=== PATIENT | female | born 1980 | race African-American/Black ===

== ENCOUNTER 2018-01-09 21:43 | Emergency (ER) | payer OTHER ==
[~2018-01-09] VITALS: Ht 172.7 cm; Wt 88.2 kg
[2018-01-09 22:00] VITALS: Ht 172.7 cm; Wt 88.2 kg
[2018-01-09 23:55] VITALS: BP 126/68
== END 2018-01-09 23:55 | disposition home or self-care (01) ==
LOC: ED 21:43
DX: S89.91XA Unspecified injury of right lower leg, initial encounter (principal); X58.XXXA Exposure to other specified factors, initial encounter; Y93.89 Activity, other specified; Y92.89 Other specified places as the place of occurrence of the external cause; Y99.8 Other external cause status
CPT/HCPCS: J1885

== ENCOUNTER 2020-01-06 15:03 | Emergency (ER) | payer MEDICAID ==
[~2020-01-06] VITALS: Ht 172.7 cm; Wt 83.9 kg
[2020-01-06 15:16] VITALS: Ht 172.7 cm; Wt 83.9 kg
[2020-01-06 16:15] LABS: PLATELET COUNT 370 x10^3mcL (130-400); RED CELL DISTRIBUTION WIDTH 13.7 % (11.5-14.5)
[2020-01-06 16:23] LABS: CALCIUM 8.5 mg/dL (8.5-10.1); CARBON DIOXIDE 25.4 mmol/L (21-32); CHLORIDE SERUM 108 mmol/L (98-107); CREATININE SERUM 0.7 mg/dL (0.6-1.0); GFR1 > 60 mL/min; GLUCOSE SERUM 93 mg/dL (74-106); POTASSIUM SERUM 4.2 mmol/L (3.5-5.1); SODIUM SERUM 143 mmol/L (136-145)
[2020-01-06 16:34] LABS: ALBUMIN 3.8 g/dL (3.4-5.0); ALKALINE PHOSPHATASE 64 U/L (46-116); ALT/SGPT 34 U/L (14-59); AST/SGOT 22 U/L (15-37); BILIRUBIN TOTAL 0.2 mg/dL (0.20-1.00); LIPASE 58 IU/L (73-393); TOTAL PROTEIN, SERUM 7.6 g/dL (6.4-8.2)
[2020-01-06 19:04] VITALS: BP 128/88
== END 2020-01-06 19:16 | disposition home or self-care (01) ==
LOC: ED 15:03
PROVIDERS: Emergency Medicine
DX: G43.909 Migraine, unspecified, not intractable, without status migrainosus (principal); R11.2 Nausea with vomiting, unspecified; F10.129 Alcohol abuse with intoxication, unspecified; Y90.9 Presence of alcohol in blood, level not specified
CPT/HCPCS: J0780; J1200; J1885; J2270; J2405; J3030; J7030

== ENCOUNTER 2020-04-04 20:13 | Emergency (ER) | payer MEDICAID ==
[~2020-04-04] VITALS: Ht 175.3 cm; Wt 89.4 kg
[2020-04-04 20:24] VITALS: Ht 175.3 cm; Wt 89.4 kg
[2020-04-04 21:12] LABS: PLATELET COUNT 326 x10^3mcL (130-400)
[2020-04-04 21:15] LABS: RED CELL DISTRIBUTION WIDTH 14.7 % (11.5-14.5)
[2020-04-04 21:18] LABS: CALCIUM 8.4 mg/dL (8.5-10.1); CARBON DIOXIDE 28.5 mmol/L (21-32); CHLORIDE SERUM 103 mmol/L (98-107); CREATININE SERUM 0.9 mg/dL (0.6-1.0); GFR1 > 60 mL/min; GLUCOSE SERUM 108 mg/dL (74-106); POTASSIUM SERUM 3.7 mmol/L (3.5-5.1); SODIUM SERUM 139 mmol/L (136-145)
[2020-04-04 21:22] LABS: ALBUMIN 3.4 g/dL (3.4-5.0); ALKALINE PHOSPHATASE 59 U/L (46-116); ALT/SGPT 29 U/L (14-59); AST/SGOT 23 U/L (15-37); BILIRUBIN TOTAL 0.2 mg/dL (0.20-1.00); CHOLESTEROL 178 mg/dL (<200); HDL CHOLESTEROL 59 mg/dL (40-60); PHOSPHOROUS 2.6 mg/dL (2.5-4.9); TOTAL PROTEIN, SERUM 6.5 g/dL (6.4-8.2); URIC ACID 3.1 mg/dL (2.6-6.0)
[2020-04-04 22:02] VITALS: BP 139/99
== END 2020-04-04 22:02 | disposition home or self-care (01) ==
LOC: ED 20:13
PROVIDERS: Emergency Medicine
DX: R07.89 Other chest pain (principal); Z90.49 Acquired absence of other specified parts of digestive tract
CPT/HCPCS: 36415; J1885; Q0092

== ENCOUNTER 2020-05-27 00:26 | Emergency (ER) | payer MEDICAID ==
[~2020-05-27] VITALS: Ht 175.3 cm; Wt 89.8 kg
[2020-05-27 00:38] VITALS: Ht 175.3 cm; Wt 89.8 kg
[2020-05-27 01:35] LABS: UA SPECIFIC GRAVITY >=1.030 (1.005-1.035); microscopic required? YES; urine erythrocyte 2+ (NEGATIVE)
[2020-05-27 01:39] LABS: CALCIUM 8.3 mg/dL (8.5-10.1); CARBON DIOXIDE 25.9 mmol/L (21-32); CHLORIDE SERUM 109 mmol/L (98-107); GFR1 > 60 mL/min; GLUCOSE SERUM 80 mg/dL (74-106); POTASSIUM SERUM 3.9 mmol/L (3.5-5.1); SODIUM SERUM 143 mmol/L (136-145)
[2020-05-27 01:40] LABS: BASOPHIL % 1.3 % (0-2); PLATELET COUNT 386 x10^3mcL (130-400); RED CELL DISTRIBUTION WIDTH 14.1 % (11.5-14.5)
[2020-05-27 01:44] LABS: ALBUMIN 3.8 g/dL (3.4-5.0); ALKALINE PHOSPHATASE 70 U/L (46-116); ALT/SGPT 37 U/L (14-59); AST/SGOT 35 U/L (15-37); BILIRUBIN TOTAL 0.27 mg/dL (0.20-1.00); TOTAL PROTEIN, SERUM 7.5 g/dL (6.4-8.2)
[2020-05-27 02:47] VITALS: BP 136/88
== END 2020-05-27 02:47 | disposition home or self-care (01) ==
LOC: ED 00:26
PROVIDERS: Specialist
DX: R11.2 Nausea with vomiting, unspecified (principal); E86.0 Dehydration; Z90.49 Acquired absence of other specified parts of digestive tract; Z98.890 Other specified postprocedural states
CPT/HCPCS: J2405; J7030

== ENCOUNTER 2020-09-17 10:30 | Emergency (ER) | payer MEDICAID ==
[~2020-09-17] VITALS: Ht 175.3 cm; Wt 95.3 kg
[2020-09-17 10:33] VITALS: Ht 175.3 cm; Wt 95.3 kg
[2020-09-17 11:47] LABS: UA SPECIFIC GRAVITY >=1.030 (1.005-1.035); microscopic required? YES; urine erythrocyte 2+ (NEGATIVE)
[2020-09-17 12:01] LABS: BASOPHIL % 1.2 % (0-2); PLATELET COUNT 377 x10^3mcL (130-400); RED CELL DISTRIBUTION WIDTH 14.5 % (11.5-14.5)
[2020-09-17 12:36] LABS: CALCIUM 8.8 mg/dL (8.5-10.1); CARBON DIOXIDE 25.2 mmol/L (21-32); CHLORIDE SERUM 105 mmol/L (98-107); CREATININE SERUM 0.8 mg/dL (0.6-1.0); GFR1 > 60 mL/min; GLUCOSE SERUM 88 mg/dL (74-106); POTASSIUM SERUM 3.9 mmol/L (3.5-5.1); SODIUM SERUM 140 mmol/L (136-145)
[2020-09-17 12:40] LABS: ALBUMIN 3.8 g/dL (3.4-5.0); ALKALINE PHOSPHATASE 70 U/L (46-116); ALT/SGPT 37 U/L (14-59); AST/SGOT 36 U/L (15-37); BILIRUBIN TOTAL 0.28 mg/dL (0.20-1.00); HDL CHOLESTEROL 60 mg/dL (40-60); TOTAL PROTEIN, SERUM 7.7 g/dL (6.4-8.2); TRIGLYCERIDES 50 mg/dL (<150)
[2020-09-17 12:42] LABS: CHOLESTEROL 220 mg/dL (<200); CHOLESTEROL/HDL RATIO 3.7
[2020-09-17 13:48] VITALS: BP 118/85
== END 2020-09-17 14:00 | disposition home or self-care (01) ==
LOC: ED 10:30
PROVIDERS: Specialist
DX: R51.9 Headache, unspecified (principal); R11.10 Vomiting, unspecified; Z90.49 Acquired absence of other specified parts of digestive tract
CPT/HCPCS: J1885; J2405; J7030; Q0162